=== PATIENT | male | born 1975 | race Caucasian/White ===

== ENCOUNTER → 2016-03-21 | Outpatient (CLI) | payer MEDICAID ==
[~2016-03-21] MED LIST: 'CLONIDINE0.1 MG PO; ASPIRIN CHEWABL81 M1 PO; CLEOCIN HCL300 MG PO; CLINDAMYCIN HC300 MG PO; DAYPRO600 M1 PO; HYDR25T PO; HYDRALAZINE HCL10 MG PO; IBU800 MG PO; KEFLEX500 MG PO; LISINOPRIL40 MG PO; LORAZEPAM0.5 MG PO; METFORMIN HCL500 MG PO; METFORMIN500 MG PO; NEXIUM40 MG PO; NORCO 325 MG-101 TAB PO; NORCO 5-325 TA1 EACH PO; NORVASC10 MG PO; PERCOCET 325 MG1 TA7 PO; PRAVASTATIN SOD40 MG PO; PRILOSEC40 MG PO; PRINIVIL40 MG PO; ROBAXIN750 MG PO; TORADOL10 MG PO; VICODIN 5/500 505 MG PO; VICODIN 500 MG-1 TAB PO; ZANAFLEX4 M1 PO
== END | disposition home or self-care (01) ==
LOC: RESCLI 02:57
DX: I10 Essential (primary) hypertension (principal); E11.9 Type 2 diabetes mellitus without complications; E78.5 Hyperlipidemia, unspecified; R00.0 Tachycardia, unspecified; B19.20 Unspecified viral hepatitis C without hepatic coma; Z86.73 Personal history of transient ischemic attack (TIA), and cerebral infarction without residual deficits; Z88.6 Allergy status to analgesic agent

== ENCOUNTER 2019-03-04 14:43 | Emergency (ER) | payer MEDICAID ==
[~2019-03-04] VITALS: Ht 167.6 cm; Wt 90.7 kg
[2019-03-04 14:45] VITALS: BP 137/88
[2019-03-04] MEDS ORDERED: Motrin,Rufen800 MG PO (15:06)
[2019-03-04] MEDS ORDERED: CLINDAMYCIN150 MG PO (15:06)
== END 2019-03-04 15:18 | disposition home or self-care (01) ==
LOC: ED 14:43
DX: K08.89 Other specified disorders of teeth and supporting structures (principal); Z79.899 Other long term (current) drug therapy; Z79.82 Long term (current) use of aspirin